=== PATIENT | female | born 1985 | race Caucasian/White ===

== ENCOUNTER 2018-06-16 15:10 | Inpatient (IN) | payer OTHER ==
[~2018-06-16] VITALS: Ht 177.8 cm; Wt 145.0 kg
[2018-06-21] MEDS ORDERED: MISOPROSTOL 200 MCG TABLET ONE (20:59)
[2018-06-21] MEDS ORDERED: NEWBORN KIT ONE (20:59)
[2018-06-21] MEDS ORDERED: OXYTOCIN 30U/ 0.9% NaCL 500ML 500 ML ONE (20:59)
[2018-06-21] MEDS ORDERED: LIDOCAINE 1%, 20ML ONE (20:59)
[2018-06-21] MEDS ORDERED: OXYTOCIN 30U/ 0.9% NaCL 500ML 500 ML IV ONE (21:02)
[2018-06-21] MEDS ORDERED: OXYTOCIN 30U/ 0.9% NaCL 500ML 500 ML IV PRN ×2 (21:02)
[2018-06-21] MEDS ORDERED: D5%-LACTATED RINGERS 1,000 ML IV SCH (21:02)
[2018-06-21] MEDS ORDERED: LACTATED RINGERS 1,000 ML IV SCH (21:02)
[2018-06-21 21:30] VITALS: BP 121/69
[2018-06-21] MEDS ORDERED: FENTANYL PF 100 MCG/2ML IV PRN (21:30)
[2018-06-21] MEDS ORDERED: CALCIUM CARBONATE 500 MG TAB.CHEW PO PRN (21:30)
[2018-06-21] MEDS ORDERED: ONDANSETRON 2MG/ML, 2ML IVPush PRN (21:30)
[2018-06-21] MEDS ORDERED: MISOPROSTOL 25 MCG TABLET VG PRN (21:30)
[2018-06-21] MEDS ORDERED: TERBUTALINE 1 MG/ML, 1ML SQ PRN (21:30)
[2018-06-21] MEDS ORDERED: MISOPROSTOL 25 MCG TABLET ONE (21:32)
[2018-06-21 21:38] LABS: BASOPHILS # (AUTO) 0.02 x10^3/uL (0-0.1); BASOPHILS % (AUTO) 0 % (0-1); EOSINOPHILS # (AUTO) 0.02 x10^3/uL (0-0.4); EOSINOPHILS % (AUTO) 0 % (1-7); LYMPHOCYTES # (AUTO) 1.61 x10^3/uL (1-3.4); LYMPHOCYTES % (AUTO) 15 % (22-44); MD NO; MEAN CORPUSCULAR HEMOGLOBIN 28.9 pg (27.0-34.8); MEAN CORPUSCULAR HGB CONC 32.7 g/dL (32.4-35.8); MEAN CORPUSCULAR VOLUME 88.4 fL (80-100); MEAN PLATELET VOLUME 9.9 fL (7.4-10.4); MONOCYTES # (AUTO) 0.37 x10^3/uL (0.2-0.8); MONOCYTES % (AUTO) 4 % (2-9); NEUTROPHILS # (AUTO) 8.63 x10^3/uL (1.8-6.8); NEUTROPHILS % (AUTO) 81 % (42-75); PLATELET COUNT 232 x10^3/uL (130-400); RED BLOOD COUNT 3.85 x10^6/uL (3.82-5.3); RED CELL DISTRIBUTION WIDTH 14.3 % (9.6-15.2)
[2018-06-21 21:51] LABS: ALANINE AMINOTRANSFERASE 31 U/L (12-78); ALBUMIN 2.6 g/dL (3.4-5.0); ANION GAP 9 mmol/L (5-15); BILIRUBIN, DIRECT < 0.1 mg/dL (0.1-0.2); CALCIUM 8.7 mg/dL (8.5-10.1); CHLORIDE 109 mmol/L (98-107); CREATININE 0.65 mg/dL (0.55-1.02)
[2018-06-21 21:53] LABS: ALKALINE PHOSPHATASE 132 U/L (45-117); BILIRUBIN,TOTAL 0.2 mg/dL (0.2-1.0); TOTAL PROTEIN 7.1 g/dL (6.4-8.2)
[2018-06-22] MEDS ORDERED: MISOPROSTOL 25 MCG TABLET ONE (02:55)
[2018-06-22] MEDS ORDERED: FENTANYL PF 100 MCG/2ML ONE ×3 (02:55→16:04)
[2018-06-22] MEDS: FENTANYL PF 100 MCG/2ML IVPush PRN ×2 (03:13→04:37)
[2018-06-22] MEDS ORDERED: FENTANYL/BUPIV./NS/PF 250 ML EPIDCONT SCH ×2 (03:16→05:17)
[2018-06-22] MEDS ORDERED: LACTATED RINGERS 1,000 ML IV SCH ×2 (03:16→05:17)
[2018-06-22] MEDS ORDERED: LACTATED RINGERS 1,000 ML IVBOLUS PRN ×2 (03:30→05:30)
[2018-06-22] MEDS ORDERED: BUPIVACAINE 0.25% ONE ×2 (04:52→09:57)
[2018-06-22] MEDS ORDERED: LIDOCAINE/PF 1.5%-EPI 1:200K, 30ML ONE (05:00)
[2018-06-22] MEDS ORDERED: EPHEDRINE 50 MG/ML, 1ML IVPush PRN (05:30)
[2018-06-22] MEDS ORDERED: FENTANYL PF 500 MCG, BUPIVACAINE/PF 0.5%, 30ML 62.5 ML in SODIUM CHLORIDE 0.9% 177.5 ML EPIDCONT SCH (05:30)
[2018-06-22 09:32] VITALS: BP 111/67
[2018-06-22 09:42] LABS: MICROSCOPIC INDICATED
[2018-06-22] MEDS ORDERED: ONDANSETRON 2MG/ML, 2ML ONE (09:56)
[2018-06-22] MEDS ORDERED: NEWBORN KIT ONE (16:30)
[2018-06-22] MEDS ORDERED: OXYTOCIN 30U/ 0.9% NaCL 500ML 500 ML ONE (16:40)
[2018-06-22] MEDS ORDERED: KETOROLAC 30 MG/1 ML ONE (17:09)
[2018-06-22 17:52] LABS: MEAN CORPUSCULAR HEMOGLOBIN 29.4 pg (27.0-34.8); MEAN CORPUSCULAR HGB CONC 33.4 g/dL (32.4-35.8); MEAN CORPUSCULAR VOLUME 88.1 fL (80-100); MEAN PLATELET VOLUME 10.1 fL (7.4-10.4); PLATELET COUNT 233 x10^3/uL (130-400); RED BLOOD COUNT 3.71 x10^6/uL (3.82-5.3); RED CELL DISTRIBUTION WIDTH 14.3 % (9.6-15.2)
[2018-06-22 18:00] LABS: ALANINE AMINOTRANSFERASE 27 U/L (12-78); ALBUMIN 2.1 g/dL (3.4-5.0); ANION GAP 6 mmol/L (5-15); CALCIUM 8.1 mg/dL (8.5-10.1); CHLORIDE 113 mmol/L (98-107); CREATININE 0.61 mg/dL (0.55-1.02)
[2018-06-22 18:02] LABS: ALKALINE PHOSPHATASE 127 U/L (45-117); BILIRUBIN,TOTAL 0.4 mg/dL (0.2-1.0); TOTAL PROTEIN 6.3 g/dL (6.4-8.2)
[2018-06-22] MEDS: OXYTOCIN 30U/ 0.9% NaCL 500ML 500 ML IV SCH (18:06)
[2018-06-22] MEDS ORDERED: OXYTOCIN 30U/ 0.9% NaCL 500ML 500 ML IV SCH (18:06)
[2018-06-22] MEDS ORDERED: KETOROLAC 30 MG/1 ML IVPush STA (18:06)
[2018-06-22 18:11] LABS: INTERNATIONAL NORMALIZED RATIO 0.95 (0.93-1.1); MD YES
[2018-06-22 18:13] LABS: <PLATELET ESTIMATE> ADEQUATE; <PLT MORPHOLOGY> NORMAL PLT MORPH; <RBC MORPHOLOGY> NORMAL; BAND#(MANUAL) 4.44 x10^3/uL; BANDS%(MANUAL) 23 % (0-7); LYMPH#(MANUAL) 1.16 x10^3/uL (1-3.4); LYMPHS% (MANUAL) 6 % (22-44); MONOS#(MANUAL) 0.77 x10^3/uL (0.3-2.7); MONOS% (MANUAL) 4 % (2-9); SEG#(MANUAL) 12.93 x10^3/uL (1.8-6.8); SEGS% (MANUAL) 67 % (42-75)
[2018-06-22] MEDS ORDERED: FENTANYL PF 100 MCG/2ML IVPush ONE (18:30)
[2018-06-22] MEDS ORDERED: MISOPROSTOL 200 MCG TABLET PR ONE (18:30)
[2018-06-22] MEDS ORDERED: CARBOPROST TROMETHAMINE 250 MCG/ML, 1ML IM PRN (18:30)
[2018-06-22] MEDS ORDERED: SODIUM CHLORIDE 0.9% 1,000 ML IV SCH ×2 (18:30)
[2018-06-22] MEDS ORDERED: ACETAMINOPHEN 325 MG TABLET PO PRN (18:30)
[2018-06-22] MEDS ORDERED: ONDANSETRON 2MG/ML, 2ML IV PRN (18:30)
[2018-06-22] MEDS ORDERED: CALCIUM CARBONATE 500 MG TAB.CHEW PO PRN (18:30)
[2018-06-22 19:14] VITALS: BP 106/63
[2018-06-22 20:06] LABS: MEAN CORPUSCULAR HEMOGLOBIN 29.5 pg (27.0-34.8); MEAN CORPUSCULAR HGB CONC 33.4 g/dL (32.4-35.8); MEAN CORPUSCULAR VOLUME 88.2 fL (80-100); MEAN PLATELET VOLUME 9.9 fL (7.4-10.4); PLATELET COUNT 200 x10^3/uL (130-400); RED BLOOD COUNT 3.16 x10^6/uL (3.82-5.3); RED CELL DISTRIBUTION WIDTH 14.3 % (9.6-15.2)
[2018-06-22 20:19] LABS: MD YES
[2018-06-22 20:21] LABS: <PLATELET ESTIMATE> ADEQUATE; <PLT MORPHOLOGY> NORMAL PLT MORPH; <RBC MORPHOLOGY> NORMAL; BAND#(MANUAL) 1.65 x10^3/uL; BANDS%(MANUAL) 10 % (0-7); LYMPH#(MANUAL) 1.49 x10^3/uL (1-3.4); LYMPHS% (MANUAL) 9 % (22-44); MONOS#(MANUAL) 0.33 x10^3/uL (0.3-2.7); MONOS% (MANUAL) 2 % (2-9); SEG#(MANUAL) 13.04 x10^3/uL (1.8-6.8); SEGS% (MANUAL) 79 % (42-75)
[2018-06-22 22:30] VITALS: BP 101/70
[2018-06-22] MEDS: IBUPROFEN 800 MG TABLET PO PRN (22:58)
[2018-06-22] MEDS: DOCUSATE 100 MG CAPSULE PO PRN (22:58)
[2018-06-23 02:15] VITALS: BP 117/75
[2018-06-23] MEDS: OXYTOCIN 30U/ 0.9% NaCL 500ML 500 ML IV SCH ×2 (04:06→14:06)
[2018-06-23 05:24] LABS: MEAN CORPUSCULAR HEMOGLOBIN 29.3 pg (27.0-34.8); MEAN CORPUSCULAR HGB CONC 32.8 g/dL (32.4-35.8); MEAN CORPUSCULAR VOLUME 89.5 fL (80-100); MEAN PLATELET VOLUME 9.9 fL (7.4-10.4); PLATELET COUNT 164 x10^3/uL (130-400); RED BLOOD COUNT 2.43 x10^6/uL (3.82-5.3); RED CELL DISTRIBUTION WIDTH 14.2 % (9.6-15.2)
[2018-06-23 06:02] LABS: MD YES
[2018-06-23 06:05] LABS: <RBC MORPHOLOGY> NORMAL; BANDS%(MANUAL) 1 % (0-7); LYMPH#(MANUAL) 1.36 x10^3/uL (1-3.4); LYMPHS% (MANUAL) 14 % (22-44); MONOS#(MANUAL) 0.29 x10^3/uL (0.3-2.7); MONOS% (MANUAL) 3 % (2-9); SEG#(MANUAL) 7.95 x10^3/uL (1.8-6.8); SEGS% (MANUAL) 82 % (42-75)
[2018-06-23 06:06] LABS: <PLATELET ESTIMATE> ADEQUATE; <PLT MORPHOLOGY> NORMAL PLT MORPH
[2018-06-23 06:15] VITALS: BP 114/74
[2018-06-23 07:10] VITALS: BP_SYST 109; BP_SYST 110; BP_SYST 117; BP_DIAS 74; BP_DIAS 75; BP_DIAS 81
[2018-06-23] MEDS: PRENATAL VIT/IRON/FA 1 EACH TABLET PO SCH (07:16)
[2018-06-23] MEDS: IBUPROFEN 800 MG TABLET PO PRN ×2 (07:16→15:51)
[2018-06-23] MEDS: DOCUSATE 100 MG CAPSULE PO PRN (07:16)
[2018-06-23 09:10] LABS: MEAN CORPUSCULAR HEMOGLOBIN 29.6 pg (27.0-34.8); MEAN CORPUSCULAR HGB CONC 33.4 g/dL (32.4-35.8); MEAN CORPUSCULAR VOLUME 88.6 fL (80-100); MEAN PLATELET VOLUME 9.2 fL (7.4-10.4); PLATELET COUNT 174 x10^3/uL (130-400); RED BLOOD COUNT 2.45 x10^6/uL (3.82-5.3); RED CELL DISTRIBUTION WIDTH 14.4 % (9.6-15.2)
[2018-06-23 10:40] LABS: BASOPHILS # (AUTO) 0.02 x10^3/uL (0-0.1); BASOPHILS % (AUTO) 0 % (0-1); EOSINOPHILS # (AUTO) 0.02 x10^3/uL (0-0.4); EOSINOPHILS % (AUTO) 0 % (1-7); LYMPHOCYTES # (AUTO) 1.91 x10^3/uL (1-3.4); LYMPHOCYTES % (AUTO) 21 % (22-44); MD MORPH REVIEW ONLY; MONOCYTES % (AUTO) 3 % (2-9); NEUTROPHILS # (AUTO) 6.69 x10^3/uL (1.8-6.8); NEUTROPHILS % (AUTO) 75 % (42-75)
[2018-06-23 10:41] LABS: <PLATELET ESTIMATE> ADEQUATE; ANISOCYTOSIS 1+; LARGE PLATELETS 1+; POLYCHROMASIA 1+
[2018-06-23 12:00] VITALS: BP 121/77
[2018-06-23 20:00] VITALS: BP 123/73
[2018-06-24] MEDS: OXYTOCIN 30U/ 0.9% NaCL 500ML 500 ML IV SCH (00:06)
[2018-06-24] MEDS: IBUPROFEN 800 MG TABLET PO PRN ×2 (01:47→10:04)
[2018-06-24] MEDS: DOCUSATE 100 MG CAPSULE PO PRN ×2 (01:48→08:05)
[2018-06-24 05:48] LABS: MEAN CORPUSCULAR HEMOGLOBIN 29.7 pg (27.0-34.8); MEAN CORPUSCULAR HGB CONC 33.4 g/dL (32.4-35.8); MEAN CORPUSCULAR VOLUME 89.1 fL (80-100); MEAN PLATELET VOLUME 9.7 fL (7.4-10.4); PLATELET COUNT 202 x10^3/uL (130-400); RED BLOOD COUNT 2.57 x10^6/uL (3.82-5.3); RED CELL DISTRIBUTION WIDTH 14.7 % (9.6-15.2)
[2018-06-24 06:14] LABS: BASOPHILS # (AUTO) 0.02 x10^3/uL (0-0.1); BASOPHILS % (AUTO) 0 % (0-1); EOSINOPHILS # (AUTO) 0.05 x10^3/uL (0-0.4); EOSINOPHILS % (AUTO) 1 % (1-7); LYMPHOCYTES # (AUTO) 2.16 x10^3/uL (1-3.4); LYMPHOCYTES % (AUTO) 21 % (22-44); MD SCAN; MONOCYTES # (AUTO) 0.34 x10^3/uL (0.2-0.8); MONOCYTES % (AUTO) 3 % (2-9); NEUTROPHILS # (AUTO) 7.96 x10^3/uL (1.8-6.8); NEUTROPHILS % (AUTO) 76 % (42-75)
[2018-06-24 07:20] VITALS: BP 130/88
[2018-06-24] MEDS: PRENATAL VIT/IRON/FA 1 EACH TABLET PO SCH (08:05)
[2018-06-24] MEDS ORDERED: IBUP-1222 PO (08:27)
== END 2018-06-24 12:30 | disposition home or self-care (01) | DRG 807 ==
LOC: LDIP 06-21 20:44 → 2NW 06-22 22:10
PROVIDERS: ADMIT Obstetrics & Gynecology; ATTEND Obstetrics & Gynecology
PROC: 0KQM0ZZ Repair Perineum Muscle, Open Approach (ICD-10-PCS; principal; 2018-06-21)
PROC: 10E0XZZ Delivery of Products of Conception, External Approach (ICD-10-PCS; 2018-06-21)
PROC: 0UQGXZZ Repair Vagina, External Approach (ICD-10-PCS; 2018-06-21)
PROC: 3E0R3BZ Introduction of Anesthetic Agent into Spinal Canal, Percutaneous Approach (ICD-10-PCS; 2018-06-21)
PROC: 00HU33Z Insertion of Infusion Device into Spinal Canal, Percutaneous Approach (ICD-10-PCS; 2018-06-21)
DX: O13.4 Gestational [pregnancy-induced] hypertension without significant proteinuria, complicating childbirth (principal); Z37.0 Single live birth; O69.81X0 Labor and delivery complicated by cord around neck, without compression, not applicable or unspecified; E66.01 Morbid (severe) obesity due to excess calories; O99.214 Obesity complicating childbirth; O70.1 Second degree perineal laceration during delivery; Z83.3 Family history of diabetes mellitus; Z3A.39 39 weeks gestation of pregnancy
CPT/HCPCS: 36415; J7121; 80053; 81001; 82248; 84550; 85025; 85240; 85245; 85246; 85247; 85384; 85610; 85730; 86850; 86900; 86923; G0378; J1885; J2405; J3010; J3490; J2590; J7030; J7050; J7120

== ENCOUNTER 2018-06-16 15:51 | Outpatient (CLI) | payer OTHER ==
[~2018-06-16] VITALS: Ht 177.8 cm; Wt 145.6 kg
[2018-06-16 16:10] VITALS: BP 138/85
[2018-06-16 16:41] LABS: BASOPHILS # (AUTO) 0.03 x10^3/uL (0-0.1); BASOPHILS % (AUTO) 0 % (0-1); EOSINOPHILS # (AUTO) 0.03 x10^3/uL (0-0.4); EOSINOPHILS % (AUTO) 0 % (1-7); LYMPHOCYTES # (AUTO) 1.66 x10^3/uL (1-3.4); LYMPHOCYTES % (AUTO) 19 % (22-44); MD NO; MEAN CORPUSCULAR HEMOGLOBIN 29.8 pg (27.0-34.8); MEAN CORPUSCULAR HGB CONC 33.5 g/dL (32.4-35.8); MEAN CORPUSCULAR VOLUME 88.8 fL (80-100); MEAN PLATELET VOLUME 9.7 fL (7.4-10.4); MONOCYTES # (AUTO) 0.41 x10^3/uL (0.2-0.8); MONOCYTES % (AUTO) 5 % (2-9); NEUTROPHILS # (AUTO) 6.52 x10^3/uL (1.8-6.8); NEUTROPHILS % (AUTO) 75 % (42-75); PLATELET COUNT 224 x10^3/uL (130-400); RED BLOOD COUNT 3.73 x10^6/uL (3.82-5.3); RED CELL DISTRIBUTION WIDTH 14.1 % (9.6-15.2)
[2018-06-16 16:52] LABS: MICROSCOPIC AUTO
[2018-06-16 16:55] LABS: ALBUMIN 2.5 g/dL (3.4-5.0); ANION GAP 9 mmol/L (5-15); CALCIUM 8.8 mg/dL (8.5-10.1); CHLORIDE 108 mmol/L (98-107); CREATININE 0.58 mg/dL (0.55-1.02)
[2018-06-16 16:57] LABS: BILIRUBIN, DIRECT < 0.1 mg/dL (0.1-0.2)
[2018-06-16 17:03] LABS: PROTEIN/CREATININE RATIO,URINE < 254 (0-200); TOTAL PROTEIN,URINE RANDOM < 5 mg/dL (0-12)
[2018-06-16 17:05] LABS: ALANINE AMINOTRANSFERASE 32 U/L (12-78); ALKALINE PHOSPHATASE 131 U/L (45-117); BILIRUBIN,TOTAL 0.2 mg/dL (0.2-1.0); TOTAL PROTEIN 6.9 g/dL (6.4-8.2)
== END 2018-06-16 18:10 | disposition home or self-care (01) ==
LOC: LDOP 15:51
PROVIDERS: ATTEND Obstetrics & Gynecology
DX: O16.3 Unspecified maternal hypertension, third trimester (principal); Z3A.38 38 weeks gestation of pregnancy
CPT/HCPCS: 36415; 59025; 80053; 81001; 82248; 82570; 84156; 84550; 85025; 99201; G0463

== ENCOUNTER 2018-07-27 15:25 | Emergency (ER) | payer OTHER ==
[~2018-07-27] VITALS: Ht 177.8 cm; Wt 136.8 kg
[~2018-07-27 15:25] MED LIST: IBUP-1222 PO
[2018-07-27 15:56] LABS: BASOPHILS # (AUTO) 0.04 x10^3/uL (0-0.1); BASOPHILS % (AUTO) 1 % (0-1); EOSINOPHILS # (AUTO) 0.05 x10^3/uL (0-0.4); EOSINOPHILS % (AUTO) 1 % (1-7); LYMPHOCYTES # (AUTO) 1.73 x10^3/uL (1-3.4); LYMPHOCYTES % (AUTO) 31 % (22-44); MD NO; MEAN CORPUSCULAR HGB CONC 30.9 g/dL (32.4-35.8); MEAN CORPUSCULAR VOLUME 80.9 fL (80-100); MEAN PLATELET VOLUME 8.5 fL (7.4-10.4); MONOCYTES # (AUTO) 0.27 x10^3/uL (0.2-0.8); MONOCYTES % (AUTO) 5 % (2-9); NEUTROPHILS # (AUTO) 3.48 x10^3/uL (1.8-6.8); NEUTROPHILS % (AUTO) 63 % (42-75); PLATELET COUNT 346 x10^3/uL (130-400); RED BLOOD COUNT 3.55 x10^6/uL (3.82-5.3); RED CELL DISTRIBUTION WIDTH 17.2 % (9.6-15.2)
[2018-07-27 16:05] LABS: ALANINE AMINOTRANSFERASE 21 U/L (12-78); ALBUMIN 3.1 g/dL (3.4-5.0); ANION GAP 6 mmol/L (5-15); CALCIUM 8.9 mg/dL (8.5-10.1); CHLORIDE 111 mmol/L (98-107)
[2018-07-27 16:08] LABS: ALKALINE PHOSPHATASE 108 U/L (45-117); BILIRUBIN,TOTAL 0.2 mg/dL (0.2-1.0); CREATININE 0.86 mg/dL (0.55-1.02)
--- NOTE | 2018-07-27 16:16 | NUR ---
PT IN BED, NAD, AWAITING US READ, NO NEEDS AT THSI TIME, WCTM.
[2018-07-27 16:54] VITALS: BP 124/81
--- NOTE | 2018-07-27 16:58 | NUR ---
task RN note: report received from primary RN. per MD, pt does not need ua prior to dc. pt given dc instructions. pt a&ox4, resps even and unlabored, no complaint at dc. pt amb to dc desk with steady gait, nadn at dc.
== END 2018-07-27 16:59 | disposition home or self-care (01) ==
LOC: ED 16:45
DX: M79.661 Pain in right lower leg (principal); D62 Acute posthemorrhagic anemia; Z88.5 Allergy status to narcotic agent
CPT/HCPCS: 36415; 80053; 85025; 99284